=== PATIENT | male | born 2005 | race African-American/Black ===

== ENCOUNTER 2024-05-03 15:25 | Emergency (ER) | payer OTHER, SELFPAY ==
[2024-05-03 16:14] VITALS: BP 145/72; PULSE 61; RESP 16; TEMP 36.6; O2SAT 99
--- NOTE | 2024-05-03 16:51 | ED_ITS ---
HPI - Wound/Laceration General Chief Complaint: Wound/Laceration Stated Complaint: Laceration to hand-cut with knife Time Seen by Provider: 05/03/24 16:31 Source: patient Mode of arrival: ambulatory Limitations: no limitations History of Present Illness HPI narrative: This is a 18-year-old male who presents to the ED for chief complaint of finger laceration to the left middle finger. Patient works at a [employer] states this happened at work about 2 hours ago. States that he accidentally cut the tip of the finger with 1 of the knives. States it was bleeding a lot of the time but no further bleeding. Denies any other injury. Unsure of last tetanus shot. Related Data Allergies Allergy/AdvReac Type Severity Reaction Status Date / Time Nuts Allergy Severe Difficulty Uncoded 05/03/24 15:27 Swallowing seafood Allergy Severe Difficulty Uncoded 05/03/24 15:27 Breathing Review of Systems Review of Systems: All systems as dictated in HPI Exam Narrative: GENERAL: Well-appearing, well-nourished, and in no acute distress. HEAD: Normocephalic, atraumatic. MSK: Normal range of motion. No edema. SKIN: 1.5 cm superficial laceration to the palmar side of the left middle finger. No active bleeding. NEURO: Alert and oriented x4. No focal deficits. PSYCH: Normal mood and affect. Course Vital Signs Vital signs: Vital Signs Temperature 97.9 F 05/03/24 16:14 Pulse Rate 61 05/03/24 16:14 Respiratory Rate 16 05/03/24 16:14 Blood Pressure 145/72 H 05/03/24 16:14 Pulse Oximetry 99 05/03/24 16:14 Oxygen Delivery Room Air 05/03/24 16:14 Temperature 97.9 F 05/03/24 16:14 Pulse Rate 61 05/03/24 16:14 Respiratory Rate 16 05/03/24 16:14 Blood Pressure 145/72 H 05/03/24 16:14 Pulse Oximetry 99 05/03/24 16:14 Oxygen Delivery Room Air 05/03/24 16:14 Procedures Laceration Laceration 1: Date: 05/03/24 Time: 16:54 Site: upper extremity Side (If applicable): left Size (cm): 1.5 Description: linear Depth: simple, single layer Pre-repair: wound explored, irrigated extensively and deep structures intact ====== Skin Level ====== Skin layer closed with: dermabond and steri strips ====== Subcutaneous Layer ====== ====== Muscle Layer ====== ====== Tendon Layer ====== MDM - Wound/Laceration MDM Narrative Medical decision making narrative: This is a 18-year-old male who presents to the ED for chief complaint of laceration injury to the left middle finger. Vitals are normal. Exam does show superficial 1.5 cm laceration. No active bleeding. The wound was well cleansed and irrigated here. Closed with Dermabond and Steri-Strips. He will be given Tdap update. Laceration instructions given. Patient will be discharged in stable condition. Supportive measures discussed and return precautions given. Patient is understanding and agreeable with plan for discharge with PCP follow-up. Differential Diagnosis Differential diagnosis: Likely laceration, abrasion and avulsion of skin Discharge Plan Discharge Clinical Impression: Laceration Patient Disposition: Home, Self-Care Condition: Stable Instructions: Antibiotic Form, Laceration (ED) Additional Instructions: Keep wound clean and dry. Do not soak, take baths, or swim until wound is completely healed. If any signs of infection such as redness, swelling, increasing pain, drainage of purulent discharge, streaks up your extremity develop, seek medical attention immediately. Patient Language: Estonian Follow-up/Referrals: PHYSICIAN NOT ON STAFF,NONSTAFF [Primary Care Provider] - Stand Alone Forms: Work/School Release IP Time of Disposition: 16:56
[2024-05-03] MEDS: TETANUS,DIPHTHERIA,AC PERTUSSIS ADULT (0.5 ML) BOOSTRIX IM (17:02)
== END 2024-05-03 17:10 | disposition home or self-care (01) ==
PROVIDERS: Emergency Provider Physician Assistant
DX: S61.213A Laceration without foreign body of left middle finger without damage to nail, initial encounter (principal); W26.0XXA Contact with knife, initial encounter; Z23 Encounter for immunization
CPT/HCPCS: 12001; 90471; 90715; 99282